=== PATIENT | female | born 2000 | race Hispanic/Latino ===

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

== ENCOUNTER 2021-07-19 08:24 | Outpatient (CLI) | payer OTHER | END 2021-07-19 08:25 | disposition home or self-care (01) | LOC: BICULT 08:24 | PROVIDERS: ATTEND Family Medicine | DX: O09.892 Supervision of other high risk pregnancies, second trimester (principal); Z3A.18 18 weeks gestation of pregnancy | CPT/HCPCS: 76805 ==

== ENCOUNTER 2021-11-12 18:59 | Emergency (ER) | payer OTHER ==
[2021-11-12 19:36] LABS: Bacteria/HPF None Seen HPF (None Seen); Bilirubin Negative (Negative); Blood, Urine Negative (Negative); Clarity Clear (Clear); Glucose, Urine (Dipstick) Normal (Negative); Ketone, Urine 10 mg/dL (Negative); Leukocyte 75 Leu/uL (Negative); Nitrite Negative (Negative); Protein, Urine (Dipstick) 10 mg/dL (Neg-Trace); RBC/HPF None Seen HPF (0-3); Specific Gravity, Urine 1.023 (1.002-1.036); Squamous Epithelial 0-3 HPF (0-3); Urobilinogen Normal mg/dL (Less than 2); pH, Urine 6.5 (5.0-9.0)
== END 2021-11-12 20:34 | disposition short-term general hospital (02) ==
LOC: ERS 18:59
DX: O99.891 Other specified diseases and conditions complicating pregnancy (principal); R10.9 Unspecified abdominal pain; Z3A.32 32 weeks gestation of pregnancy
CPT/HCPCS: 81003; 81015

== ENCOUNTER 2022-11-25 10:08 | Emergency (ER) | payer BC, OTHER ==
[2022-11-25] MEDS ORDERED: Ondansetron ODT 4 MG TAB ONE (10:54)
[2022-11-25] MEDS ORDERED: Azithromycin 250 MG TAB ONE (11:30)
== END 2022-11-25 11:35 | disposition home or self-care (01) ==
LOC: ERS 10:08
DX: O98.311 Other infections with a predominantly sexual mode of transmission complicating pregnancy, first trimester (principal); A74.9 Chlamydial infection, unspecified; Z3A.01 Less than 8 weeks gestation of pregnancy
CPT/HCPCS: 99283; Q0162